=== PATIENT | male | born 1950 | race Caucasian/White ===

== ENCOUNTER 2025-09-04 01:40 | Outpatient (CLI) | payer OTHER, SELFPAY ==
[2025-09-04] MEDS: Inhaler, Assist Device 1 EACH MC (11:12)
[2025-09-04] MEDS: Levalbuterol HFA 15 GM INH 4 PUFF IH (11:13)
--- NOTE | 2025-09-05 08:28 | W.PFT ---
Date of service: 09/04/25 Time of Service: 09:57 Pulmonary Function Test Result Indications: COPD Impression 1. Good patient effort was noted. ATS standards for reproducibility were met. 2. Spirometry showed moderate obstructive lung disease with an FEV1 of 59% (1.52 L) 3. Following the administration of a bronchodilator there was not a signifcant response 4. TLC and RV were elevated, consistent with air trapping 5. DLCO was 46%, consistent with a severe defect in alveolar gas exchange
== END 2025-09-04 01:41 | disposition home or self-care (01) ==
PROVIDERS: PCP Nurse Practitioner Family; Visit Provider Internal Medicine Pulmonary Disease
DX: J44.9 Chronic obstructive pulmonary disease, unspecified (principal)
CPT/HCPCS: 94060; 94726; 94729